=== PATIENT | female | born 1970 | race Two or more races ===

== ENCOUNTER 2020-05-15 14:30 | Inpatient (IN) | payer OTHER ==
[~2020-05-15] VITALS: Ht 154.9 cm; Wt 78.9 kg
[2020-05-18] MEDS ORDERED: SYNTHROID125 MCG PO (09:00)
[2020-05-18] MEDS ORDERED: TENORMIN100 M1 PO (09:00)
[2020-05-18] MEDS ORDERED: CRESTOR5 MG PO (09:01)
[2020-05-25] MEDS ORDERED: SIMETHICONE125 M1 PO (14:44)
[2020-05-25] MEDS ORDERED: DOCUSATE SODIU100 MG PO (14:44)
[2020-05-25] MEDS ORDERED: AMOX1TAB5 PO (14:44)
[2020-05-25] MEDS ORDERED: OXYC1TAB9 PO (14:44)
== END 2020-05-25 15:03 | DRG 743 ==
LOC: OB/GYN 05-18 07:30 → O/R 05-22 05:30 → SURH 05-22 07:30 → OB/GYN 05-22 11:47
PROVIDERS: ADMIT Obstetrics & Gynecology; ATTEND Obstetrics & Gynecology
PROC: 0UT70ZZ Resection of Bilateral Fallopian Tubes, Open Approach (ICD-10-PCS; 2020-05-22)
PROC: 0UT90ZZ Resection of Uterus, Open Approach (ICD-10-PCS; principal; 2020-05-22 11:30)
DX: D25.1 Intramural leiomyoma of uterus (principal); D25.0 Submucous leiomyoma of uterus; N72 Inflammatory disease of cervix uteri; I11.9 Hypertensive heart disease without heart failure; E78.00 Pure hypercholesterolemia, unspecified; N93.8 Other specified abnormal uterine and vaginal bleeding; D64.89 Other specified anemias; I34.1 Nonrheumatic mitral (valve) prolapse; E66.8 Other obesity; Z20.828 Contact with and (suspected) exposure to other viral communicable diseases